=== PATIENT | female | born 1940 | race Caucasian/White ===

== ENCOUNTER 2020-10-18 08:57 | Emergency (ER) | payer MEDICARE, OTHER ==
[~2020-10-18 08:57] MED LIST: CEFUROXIME500 MG PO; MOBIC15 MG PO; OMEPRAZOLE20 MG PO; ONDANSETRON ODT4 MG PO; TESSALON PERLE100 MG PO
[2020-10-18] MEDS ORDERED: LACTULOSE20 GM/30 M PO (10:29)
== END 2020-10-18 10:39 | disposition home or self-care (01) ==
LOC: ER1 08:57
DX: K59.00 Constipation, unspecified (principal); I10 Essential (primary) hypertension; Z88.0 Allergy status to penicillin; Z85.038 Personal history of other malignant neoplasm of large intestine
CPT/HCPCS: 99283

== ENCOUNTER 2021-02-22 11:37 | Emergency (ER) | payer MEDICARE, OTHER ==
[~2021-02-22 11:37] MED LIST changes: +LACTULOSE20 GM/30 M PO
[2021-02-22 14:02] LABS: HEMOGLOBIN 13.5 gm/dl (12.3-15.3); RED BLOOD COUNT 4.22 M/UL (4.00-5.10)
[2021-02-22 14:20] LABS: BUN/CREATININE RATIO 18 (0-10)
== END 2021-02-22 15:25 | disposition home or self-care (01) ==
LOC: ER1 11:37
PROVIDERS: Physician Assistant
DX: I95.9 Hypotension, unspecified (principal); D72.819 Decreased white blood cell count, unspecified; K52.9 Noninfective gastroenteritis and colitis, unspecified; I10 Essential (primary) hypertension; Z88.0 Allergy status to penicillin
CPT/HCPCS: 71045; 80053; 81001; 82550; 82553; 83874; 84484; 85025; 93005; 99285

== ENCOUNTER 2022-01-31 18:59 | Emergency (ER) | payer MEDICARE, OTHER ==
[2022-01-31 19:58] LABS: HEMOGLOBIN 13.2 gm/dl (12.3-15.3); RED BLOOD COUNT 4.21 M/UL (4.00-5.10); WHITE BLOOD COUNT 4.5 K/UL (4.5-11.0)
[2022-01-31 20:18] LABS: BUN/CREATININE RATIO 14 (0-10)
== END 2022-01-31 21:00 | disposition left against medical advice (07) ==
LOC: ER1 18:59
PROVIDERS: Physician Assistant
DX: K59.00 Constipation, unspecified (principal); E78.5 Hyperlipidemia, unspecified; I10 Essential (primary) hypertension; Z88.0 Allergy status to penicillin; Z85.038 Personal history of other malignant neoplasm of large intestine
CPT/HCPCS: 80053; 85025; 99283; Q9967